=== PATIENT | female | born 1965 | race American Indian/Alaskan Native ===

== ENCOUNTER 2016-12-06 22:37 | Emergency (ER) | payer SELFPAY ==
[2016-12-06 23:14] VITALS: BP 155/103
--- NOTE | 2016-12-07 02:45 | Emergency Department Report ---
ED Lower Extremity HPI - General Chief Complaint: Extremity Problem,Nontraumatic Stated Complaint: R KNEE EDEMA/PAIN Time Seen by Provider: 12/07/16 02:23 Source: patient Mode of arrival: Ambulatory Limitations: No Limitations - History of Present Illness Initial Comments: Patient comes into the ER today with complaints of right knee pain for the past 4 days. Patient denies any known injury. Patient does state that she started working a new job but she mostly does sitting at this new job. Patient states that the knee feels unstable when walking and feels like it wants to give out on her. Patient does state that the pain seems to be mostly on the inside of her knee. Patient denies any chest pain, shortness of breath, ankle pain, hip pain, thigh pain. MD Complaint: knee injury -: days(s) (4) - Related Data Previous Rx's Medication Instructions Recorded Last Taken Type Cyclobenzaprine HCl [Flexeril 5 MG 5 mg PO TID PRN #20 tab 01/04/15 Unknown Rx TAB] HYDROcodone/APAP 5-325 [[place] 1 each PO Q6HR PRN #10 tablet 01/04/15 Unknown Rx 5-325 mg TAB] traMADol [Ultram 50 MG tab] 50 mg PO Q6HR PRN #20 tablet 01/04/15 Unknown Rx Acetaminophen/Codeine [Tylenol #3] 1 tab PO Q6H PRN #14 tab 12/20/15 Unknown Rx Cyclobenzaprine [Flexeril] 10 mg PO TID PRN #20 tablet 12/20/15 Unknown Rx Ibuprofen [Motrin] 800 mg PO Q8HR PRN #30 tablet 12/20/15 Unknown Rx Acetaminophen/Codeine [Tylenol 1 tab PO Q6H PRN #16 tab 12/07/16 Unknown Rx /Codeine # 3 tab] Naproxen [Naprosyn TAB] 500 mg PO BID #20 tablet 12/07/16 Unknown Rx Allergies Allergy/AdvReac Type Severity Reaction Status Date / Time No Known Allergies Allergy Unverified 01/04/15 14:19 ED Review of Systems ROS: Stated complaint: R KNEE EDEMA/PAIN Other details as noted in HPI Constitutional: denies: chills, fever Eyes: denies: eye pain, eye discharge, vision change ENT: denies: ear pain, throat pain Respiratory: denies: cough, shortness of breath, wheezing Cardiovascular: denies: chest pain, palpitations Endocrine: no symptoms reported Gastrointestinal: denies: abdominal pain, nausea, diarrhea Genitourinary: denies: urgency, dysuria, discharge Musculoskeletal: joint swelling, arthralgia. denies: back pain Skin: denies: rash, lesions Neurological: denies: headache, weakness, paresthesias Psychiatric: denies: anxiety, depression Hematological/Lymphatic: denies: easy bleeding, easy bruising ED Past Medical Hx - Past Medical History Previous Medical History?: Yes Hx Hypertension: Yes Additional medical history: "PALPITATIONS". SCIATICA - Surgical History Past Surgical History?: Yes Hx Cholecystectomy: Yes Additional Surgical History: TUBAL LIGATION - Social History Smoking Status: Current Some Day Smoker Substance Use Type: Alcohol, Marijuana - Medications Home Medications: Home Medications Medication Instructions Recorded Confirmed Last Taken Type Cyclobenzaprine HCl [Flexeril 5 MG 5 mg PO TID PRN #20 tab 01/04/15 Unknown Rx TAB] HYDROcodone/APAP 5-325 [[place] 1 each PO Q6HR PRN #10 tablet 01/04/15 Unknown Rx 5-325 mg TAB] traMADol [Ultram 50 MG tab] 50 mg PO Q6HR PRN #20 tablet 01/04/15 Unknown Rx Acetaminophen/Codeine [Tylenol #3] 1 tab PO Q6H PRN #14 tab 12/20/15 Unknown Rx Cyclobenzaprine [Flexeril] 10 mg PO TID PRN #20 tablet 12/20/15 Unknown Rx Ibuprofen [Motrin] 800 mg PO Q8HR PRN #30 tablet 12/20/15 Unknown Rx Acetaminophen/Codeine [Tylenol 1 tab PO Q6H PRN #16 tab 12/07/16 Unknown Rx /Codeine # 3 tab] Naproxen [Naprosyn TAB] 500 mg PO BID #20 tablet 12/07/16 Unknown Rx ED Physical Exam - General Limitations: No Limitations General appearance: alert, in no apparent distress - Head Head exam: Present: atraumatic, normocephalic - Eye Eye exam: Present: normal appearance - ENT ENT exam: Present: mucous membranes moist - Neck Neck exam: Present: normal inspection - Respiratory Respiratory exam: Present: normal lung sounds bilaterally. Absent: respiratory distress, wheezes, rales, rhonchi, accessory muscle use, decreased breath sounds - Cardiovascular Cardiovascular Exam: Present: regular rate (heart rate rechecked and measured at 88 bpm during my examination), normal rhythm, normal heart sounds. Absent: systolic murmur, diastolic murmur, rubs, gallop - GI/Abdominal GI/Abdominal exam: Present: soft, normal bowel sounds - Extremities Exam Extremities exam: Present: normal inspection, tenderness (tenderness noted to the distal end of right MCL as well as anterior horn of meniscus joint line.), normal capillary refill, other (positive pain with valgus stress test of right knee as well as positive Eugenio's stress test of right knee.). Absent: full ROM (Limited range of motion of right knee secondary to pain.), pedal edema, joint swelling, calf tenderness - Back Exam Back exam: Present: normal inspection - Neurological Exam Neurological exam: Present: alert, oriented X3, CN II-XII intact, reflexes normal. Absent: motor sensory deficit - Psychiatric Psychiatric exam: Present: normal affect, normal mood - Skin Skin exam: Present: warm, dry, intact, normal color. Absent: rash ED Course Vital Signs 12/06/16 22:51 Temperature 98.3 F Pulse Rate 105 H Respiratory 20 Rate Blood Pressure 155/103 O2 Sat by Pulse 100 Oximetry ED Lower Extremity MDM - Radiology Data Radiology results: image reviewed interpreted by me: X-ray right knee: No acute bone pathology noted. Slight medial joint space narrowing with mild degenerative changes. No fracture, no dislocation noted. - Medical Decision Making Patient is nontoxic and hemodynamically stable. X-ray imaging reviewed and discussed with patient room. Clinically in history yeager I believe patient to be suffering from possible MCL strain versus meniscus injury. Patient placed in right knee immobilizer here in the ER and I have encouraged patient to wear knee immobilizer when she is up and about doing any activity. I will refer patient to orthopedics for further evaluation and possible MRI to further evaluate her complaints. Patient's heart rate was initially elevated during triage but during my examination her heart rate lowered to 88 bpm. Patient does have history of high blood pressure and states that she did not take her medicine today. He is without any complaints of chest pain, headache, shortness of breath and has no physical exam concerning for any possible DVT, gout, cellulitis. Patient is in agreement with treatment plan patient is stable for discharge. Critical care attestation.: If time is entered above; I have spent that time in minutes in the direct care of this critically ill patient, excluding procedure time. ED Disposition Clinical Impression: Knee MCL sprain, Right knee pain, Elevated blood pressure reading Disposition: TO HOME OR SELFCARE Is pt being admited?: No Does the pt Need Aspirin: No Condition: Good Instructions: Knee Immobilizer (ED), Knee Sprain (ED) Prescriptions: Acetaminophen/Codeine [Tylenol /Codeine # 3 tab] 1 tab PO Q6H PRN #16 tab PRN Reason: Pain Naproxen [Naprosyn TAB] 500 mg PO BID #20 tablet Referrals: PRIMARY CAREMD [Primary Care Provider] - 3-5 Days KARLI TILLMAN MD [Staff Physician] - 3-5 Days Forms: Work/School Release Form(ED) Time of Disposition: 02:48
--- NOTE | 2016-12-07 10:55 | XRay Report ---
RIGHT KNEE 2 VIEWS: 12/06/16 22:37:00 CLINICAL: Pain FINDINGS: No fracture or dislocation. Medial joint space osteoarthritis with mild narrowing of the joint space and small osteophytes. Patellofemoral joint osteoarthritis with small osteophytes. No joint effusion.Normal soft tissues. IMPRESSION: Osteoarthritis and otherwise normal.
== END 2016-12-07 03:53 | disposition home or self-care (01) ==
LOC: ED 22:37
DX: S83.91XA Sprain of unspecified site of right knee, initial encounter (principal); I10 Essential (primary) hypertension; X58.XXXA Exposure to other specified factors, initial encounter; Y93.9 Activity, unspecified; Y92.9 Unspecified place or not applicable; Y99.9 Unspecified external cause status
CPT/HCPCS: 99283

== ENCOUNTER 2017-11-08 22:04 | Emergency (ER) | payer SELFPAY ==
[2017-11-08] MEDS ORDERED: CATAPRES PO ONE (22:28)
[2017-11-08 22:54] LABS: Basophils % (Auto) 0.5 % (0.0-1.8); Eosinophils # (Auto) 0.3 K/mm3 (0.0-0.4); Eosinophils % (Auto) 5.6 % (0.0-4.3); Hematocrit 41.3 % (30.3-42.9); Hemoglobin 13.9 gm/dl (10.1-14.3); Lymphocytes # (Auto) 1.6 K/mm3 (1.2-5.4); Lymphocytes % (Auto) 26.8 % (13.4-35.0); Mean Corpuscular HGB Conc 34 % (30-34); Mean Corpuscular Hemoglobin 34 pg (28-32); Mean Corpuscular Volume 102 fl (79-97); Monocytes # (Auto) 0.5 K/mm3 (0.0-0.8); Monocytes % (Auto) 7.5 % (0.0-7.3); Platelet Count 186 K/mm3 (140-440); Red Blood Count 4.05 M/mm3 (3.65-5.03); Red Cell Distribution Width 14.8 % (13.2-15.2)
[2017-11-08 23:11] LABS: BUN/Creatinine Ratio 17; Blood Urea Nitrogen 17 mg/dL (7-17); Calcium 9.5 mg/dL (8.4-10.2); Hemolysis Index 8
--- NOTE | 2017-11-08 23:16 | XRay Report ---
FINAL REPORT EXAM: XR CHEST ROUTINE 2V HISTORY: Productive Cough COMPARISON: None available. FINDINGS:: Frontal and lateral views of the chest obtained. Cardiac silhouette is within normal limits. No focal consolidation or effusion. No pneumothorax. Visualized bony thorax is grossly intact. IMPRESSION:: No acute findings.
--- NOTE | 2017-11-08 23:19 | Cat Scan Report ---
FINAL REPORT EXAM: CT HEAD/BRAIN WO CON HISTORY: Headache COMPARISON: None available. TECHNIQUE: Axial images obtained skull base through vertex. FINDINGS: No acute intracranial hemorrhage, midline shift or pathologic extra axial fluid collection. Ventricles and cisterns are normal in size and configuration for the patient's age. Da Silva-white differentiation preserved. Calvarium grossly intact. Ocular globes are grossly unremarkable. Mild calcified plaque along the carotid siphons. Mild to moderate mucosal thickening the visualized paranasal sinuses. Mastoid air cells are clear. Partially empty sella, benign variant. Prominence of the nasopharyngeal adenoids. This may be reactive. IMPRESSION: No grossly acute intracranial abnormality.
[2017-11-08] MEDS ORDERED: BENADRYL IV ONE (23:52)
[2017-11-08] MEDS ORDERED: NACL 0.9% 1000 ML 1,000 ML IV ONE (23:52)
[2017-11-08] MEDS ORDERED: TORADOL IV ONE (23:52)
[2017-11-08] MEDS ORDERED: REGLAN IV ONE (23:53)
[2017-11-08] MEDS ORDERED: DECADRON PO ONE (23:53)
--- NOTE | 2017-11-08 23:58 | Emergency Department Report ---
ED Headache HPI - General Chief Complaint: Headache Stated Complaint: HEADACHE,LEFT ARM PAIN,COUGH Time Seen by Provider: 11/08/17 23:34 Source: patient - History of Present Illness Initial Comments: ms bautista is a 52 year-old woman with hx of HTN on atenolol (ran out) who presents with headache for nearly two weeks. Has had DIAMODN over entire head since her granddaughter on October 23. Was exacerbated by the passing of her nephew two nights ago. No weakness, no tingling, no changes in vision. Has been out of meds for more than a month. Also reports nagging cough, no fever, no sputum. Left shoulder pain. Front of her shoulder and radiates down her left arm. No weakness/tingling in arm, just hurts to move her shoulder. No neck pain/ stiffness. Timing/Duration: 1 week Quality: constant Head Injury Location: global Recent Head Trauma: no recent headache/trauma Associated Symptoms: denies symptoms Allergies/Adverse Reactions: Allergies No Known Allergies Allergy (Unverified 01/04/15 14:19) Home Medications: Ambulatory Orders Cyclobenzaprine HCl [Flexeril 5 MG TAB] 5 mg PO TID PRN #20 tab 01/04/15 HYDROcodone/APAP 5-325 [[place] 5-325 mg TAB] 1 each PO Q6HR PRN #10 tablet traMADol [Ultram 50 MG tab] 50 mg PO Q6HR PRN #20 tablet 01/04/15 Acetaminophen/Codeine [Tylenol #3] 1 tab PO Q6H PRN #14 tab 12/20/15 Cyclobenzaprine [Flexeril] 10 mg PO TID PRN #20 tablet 12/20/15 Ibuprofen [Motrin] 800 mg PO Q8HR PRN #30 tablet 12/20/15 Acetaminophen/Codeine [Tylenol /Codeine # 3 tab] 1 tab PO Q6H PRN #16 tab Naproxen [Naprosyn TAB] 500 mg PO BID #20 tablet 12/07/16 ED Review of Systems ROS: Stated complaint: HEADACHE,LEFT ARM PAIN,COUGH Other details as noted in HPI Comment: All other systems reviewed and negative ED Past Medical Hx - Past Medical History Hx Hypertension: Yes Additional medical history: "PALPITATIONS". SCIATICA - Surgical History Hx Cholecystectomy: Yes Additional Surgical History: TUBAL LIGATION - Social History Smoking Status: Current Every Day Smoker Substance Use Type: None - Medications Home Medications: Home Medications Medication Instructions Recorded Confirmed Last Taken Type Cyclobenzaprine HCl [Flexeril 5 MG 5 mg PO TID PRN #20 tab 01/04/15 Unknown Rx TAB] HYDROcodone/APAP 5-325 [[place] 1 each PO Q6HR PRN #10 tablet 01/04/15 Unknown Rx 5-325 mg TAB] traMADol [Ultram 50 MG tab] 50 mg PO Q6HR PRN #20 tablet 01/04/15 Unknown Rx Acetaminophen/Codeine [Tylenol #3] 1 tab PO Q6H PRN #14 tab 12/20/15 Unknown Rx Cyclobenzaprine [Flexeril] 10 mg PO TID PRN #20 tablet 12/20/15 Unknown Rx Ibuprofen [Motrin] 800 mg PO Q8HR PRN #30 tablet 12/20/15 Unknown Rx Acetaminophen/Codeine [Tylenol 1 tab PO Q6H PRN #16 tab 12/07/16 Unknown Rx /Codeine # 3 tab] Naproxen [Naprosyn TAB] 500 mg PO BID #20 tablet 12/07/16 Unknown Rx ED Physical Exam - General Limitations: No Limitations General appearance: alert, in no apparent distress - Head Head exam: Present: atraumatic, normocephalic, normal inspection - Eye Eye exam: Present: normal appearance, PERRL, EOMI. Absent: conjunctival injection - ENT ENT exam: Present: normal exam, mucous membranes moist - Neck Neck exam: Present: normal inspection, full ROM. Absent: tenderness, meningismus - Respiratory Respiratory exam: Present: normal lung sounds bilaterally. Absent: respiratory distress, wheezes, rales, rhonchi - Cardiovascular Cardiovascular Exam: Present: regular rate, normal rhythm. Absent: systolic murmur, diastolic murmur, rubs, gallop - GI/Abdominal GI/Abdominal exam: Present: soft. Absent: distended, tenderness - Extremities Exam Extremities exam: Present: normal inspection, full ROM, tenderness (Left anterior proximal humeral ttp, full acitve and passive ROM shoulder), normal capillary refill - Back Exam Back exam: Present: normal inspection - Neurological Exam Neurological exam: Present: alert, oriented X3, other (LUE NV itnact). Absent: motor sensory deficit - Psychiatric Psychiatric exam: Present: normal affect, normal mood - Skin Skin exam: Present: warm, dry, intact, normal color. Absent: rash ED Course Vital Signs 11/08/17 11/08/17 11/08/17 22:02 22:35 23:46 Temperature 98.4 F Pulse Rate 81 86 77 Respiratory 18 17 Rate Blood Pressure 210/127 210/127 Blood Pressure 159/87 [Right] O2 Sat by Pulse 98 97 Oximetry 11/09/17 11/09/17 00:00 00:53 Temperature Pulse Rate 62 Respiratory 16 Rate Blood Pressure 161/90 Blood Pressure [Right] O2 Sat by Pulse 97 Oximetry ED Medical Decision Making - Lab Data Result diagrams: 11/08/17 22:35 11/08/17 22:35 Lab Results 11/08/17 11/08/17 Range/Units 22:35 22:35 WBC 6.1 (4.5-11.0) K/mm3 RBC 4.05 (3.65-5.03) M/mm3 Hgb 13.9 (10.1-14.3) gm/dl Hct 41.3 (30.3-42.9) % MCV 102 H (79-97) fl MCH 34 H (28-32) pg MCHC 34 (30-34) % RDW 14.8 (13.2-15.2) % Plt Count 186 (140-440) K/mm3 Lymph % (Auto) 26.8 (13.4-35.0) % [place] % (Auto) 7.5 H (0.0-7.3) % Eos % (Auto) 5.6 H (0.0-4.3) % Baso % (Auto) 0.5 (0.0-1.8) % Lymph # 1.6 (1.2-5.4) K/mm3 [place] # 0.5 (0.0-0.8) K/mm3 Eos # 0.3 (0.0-0.4) K/mm3 Baso # 0.0 (0.0-0.1) K/mm3 Seg Neutrophils % 59.6 (40.0-70.0) % Seg Neutrophils # 3.7 (1.8-7.7) K/mm3 Sodium 143 (137-145) mmol/L Potassium 3.4 L (3.6-5.0) mmol/L Chloride 98.9 (98-107) mmol/L Carbon Dioxide 34 H (22-30) mmol/L Anion Gap 14 mmol/L BUN 17 (7-17) mg/dL Creatinine 1.0 (0.7-1.2) mg/dL Estimated GFR > 60 ml/min BUN/Creatinine Ratio 17 % Glucose 95 (65-100) mg/dL Calcium 9.5 (8.4-10.2) mg/dL Troponin T < 0.010 (0.00-0.029) ng/mL - EKG Data -: EKG Interpreted by Me - EKG Data 11/08/17 23:59 2310; HR 66, sinus, normal axis, intervals wnl, no ST changes concerning for acute ischemia - Radiology Data EXAM: CT HEAD/BRAIN WO CON HISTORY: Headache COMPARISON: None available. TECHNIQUE: Axial images obtained skull base through vertex. FINDINGS: No acute intracranial hemorrhage, midline shift or pathologic extra axial fluid collection. Ventricles and cisterns are normal in size and configuration for the patient's age. Da Silva-white differentiation preserved. Calvarium grossly intact. Ocular globes are grossly unremarkable. Mild calcified plaque along the carotid siphons. Mild to moderate mucosal thickening the visualized paranasal sinuses. Mastoid air cells are clear. Partially empty sella, benign variant. Prominence of the nasopharyngeal adenoids. This may be reactive. IMPRESSION: No grossly acute intracranial abnormality. EXAM: XR CHEST ROUTINE 2V HISTORY: Productive Cough COMPARISON: None available. FINDINGS:: Frontal and lateral views of the chest obtained. Cardiac silhouette is within normal limits. No focal consolidation or effusion. No pneumothorax. Visualized bony thorax is grossly intact. IMPRESSION:: No acute findings. - Medical Decision Making Ms Bautista is a 52 year-old woman with hx of HTN who presents from home with DIAMOND for weeks. Also with cough, left shoulder pain. labs and imaging ordered in triage. Weeks of what sounds like tension type headache since stressful life event. no neuro symptoms. left shoulder pain, better with rest, worse with movement. Again no weakness, no tingling in L arm. Dry cough without fever. Exam reveals her to be neuro intact, lungs clear, muscular ttp at biceps tendon origin. Suspect this is tension type DIAMOND vs ICH vs mass. Suspect arm pain is msk and cough is allergies. CXR clear. CT head wnl. EKG nsr without evidence of ischemia. Was given clonidine for HTN. has been out of her home meds for some time. Given half dose of atenolol. Will refill her atenolol. Has pcp follow-up this week. Given DIAMOND cocktail. Full resolution of DIAMOND. Improvement in arm pain. Reassured as to the finding that she does not have pneumonia. Given care instructions and return precautions. Safe for dc to home. Critical care attestation.: If time is entered above; I have spent that time in minutes in the direct care of this critically ill patient, excluding procedure time. ED Disposition Clinical Impression: Cough Headache Qualifiers: Headache type: tension-type Headache chronicity pattern: acute headache Intractability: not intractable Qualified Code(s): G44.209 - Tension-type headache, unspecified, not intractable Shoulder pain, left Qualifiers: Chronicity: unspecified Qualified Code(s): M25.512 - Pain in left shoulder Disposition: DC-01 TO HOME OR SELFCARE Is pt being admited?: No Condition: Stable Instructions: Tension Headache (ED), Acute Headache (ED), Rotator Cuff Injury ( ED) Referrals: PRIMARY CARE, [Primary Care Provider] - 3-5 Days
[2017-11-09] MEDS ORDERED: TENORMIN PO ONE ×2 (00:29→00:50)
[2017-11-09 00:56] VITALS: BP 161/90
== END 2017-11-09 02:00 | disposition home or self-care (01) ==
LOC: ED 22:04
DX: G44.209 Tension-type headache, unspecified, not intractable (principal); R05 Cough; M25.512 Pain in left shoulder; I10 Essential (primary) hypertension; F17.200 Nicotine dependence, unspecified, uncomplicated; Z98.51 Tubal ligation status
CPT/HCPCS: 36415; 70450; 71046; 80048; 84484; 85025; 93005; 93010; 96361; 96374; 96375; 99284; J1885; J2765; J7030; J8540; J1200

== ENCOUNTER 2018-01-29 14:32 | Emergency (ER) | payer OTHER ==
[2018-01-29] MEDS ORDERED: DELTASONE PO ONE (17:15)
--- NOTE | 2018-01-29 17:17 | Emergency Department Report ---
Chief Complaint: Neuro Symptoms/Deficit Stated Complaint: (R) HIP AND BACK PAIN Time Seen by Provider: 01/29/18 17:06 - HPI History of Present Illness: 52-year-old female presents to the emergency department with 2 main issues. Her most concerning complaint, to her, is right buttock pain that occurs mostly at night after she has gotten ready for bed and has been lying in bed for about 45 minutes. At that time he gets to be a severe pain that keeps her from getting to sleep. Once she is up and ambulatory she appears to improve. She says that the pain is generally there but is very bearable until she goes to sleep. This is been going on for the past 2-3 months. The second complaint is some right arm paresthesias that also have been going on for the past few months. She denies any other significant past medical history. She has a primary care physician but has not seen them regarding her symptoms. - ROS Review of Systems: Positive for right arm numbness and tingling, right buttock pain Negative for headache, visual change, slurred speech, chest pain or shortness of breath - Exam Vital Signs: Vital Signs 01/29/18 16:09 Temperature 99.0 F Pulse Rate 73 Respiratory 18 Rate Blood Pressure 150/99 O2 Sat by Pulse 98 Oximetry Physical Exam: Heart and lungs are normal auscultation. No focal, motor or sensory deficits. Full range of motion of all extremities. Capillary refill less than 2 seconds and +2 over 4 radial pulse to the affected right upper extremity. MSE screening note: Focused history and physical exam performed. Due to findings the following was ordered: Patient will have a CBC, BMP and magnesium level. She has been given a dose of prednisone. ED Disposition for MSE Condition: Stable Referrals: PRIMARY CARE, [Primary Care Provider] - 3-5 Days
[2018-01-29 17:33] LABS: Basophils # (Auto) 0.1 K/mm3 (0.0-0.1); Basophils % (Auto) 0.8 % (0.0-1.8); Eosinophils # (Auto) 0.2 K/mm3 (0.0-0.4); Hematocrit 42.8 % (30.3-42.9); Hemoglobin 14.7 gm/dl (10.1-14.3); Lymphocytes % (Auto) 26.4 % (13.4-35.0); Mean Corpuscular HGB Conc 34 % (30-34); Mean Corpuscular Hemoglobin 35 pg (28-32); Mean Corpuscular Volume 101 fl (79-97); Monocytes # (Auto) 0.6 K/mm3 (0.0-0.8); Monocytes % (Auto) 8.4 % (0.0-7.3); Platelet Count 204 K/mm3 (140-440); Red Blood Count 4.24 M/mm3 (3.65-5.03)
[2018-01-29 18:01] LABS: BUN/Creatinine Ratio 19; Blood Urea Nitrogen 19 mg/dL (7-17); Hemolysis Index 22
--- NOTE | 2018-01-29 20:05 | Emergency Department Report ---
ED General Adult HPI - General Chief complaint: Neuro Symptoms/Deficit Stated complaint: (R) HIP AND BACK PAIN Time Seen by Provider: 01/29/18 17:06 Source: patient Mode of arrival: Ambulatory Limitations: No Limitations - History of Present Illness Initial comments: 52-year-old female presents to the emergency department with 2 main issues. Her most concerning complaint, to her, is right buttock pain that occurs mostly at night after she has gotten ready for bed and has been lying in bed for about 45 minutes. At that time he gets to be a severe pain that keeps her from getting to sleep. Once she is up and ambulatory she appears to improve. She says that the pain is generally there but is very bearable until she goes to sleep. This is been going on for the past 2-3 months. The second complaint is some right arm paresthesias that also have been going on for the past few months. She denies any other significant past medical history. She has a primary care physician but has not seen them regarding her symptoms. Onset/Timin -: month(s) Location: back, upper extremity, lower extremity Severity scale (0 -10): 4 Quality: aching Consistency: intermittent Improves with: rest Worsens with: movement Associated Symptoms: denies: confusion, chest pain, cough, diaphoresis, fever/ chills, headaches, loss of appetite, malaise, nausea/vomiting, rash, seizure, shortness of breath, syncope, weakness - Related Data Previous Rx's Medication Instructions Recorded Last Taken Type Cyclobenzaprine HCl [Flexeril 5 MG 5 mg PO TID PRN #20 tab 01/04/15 Unknown Rx TAB] HYDROcodone/APAP 5-325 [[place] 1 each PO Q6HR PRN #10 tablet 01/04/15 Unknown Rx 5-325 mg TAB] traMADol [Ultram 50 MG tab] 50 mg PO Q6HR PRN #20 tablet 01/04/15 Unknown Rx Acetaminophen/Codeine [Tylenol #3] 1 tab PO Q6H PRN #14 tab 12/20/15 Unknown Rx Cyclobenzaprine [Flexeril] 10 mg PO TID PRN #20 tablet 12/20/15 Unknown Rx Ibuprofen [Motrin] 800 mg PO Q8HR PRN #30 tablet 12/20/15 Unknown Rx Acetaminophen/Codeine [Tylenol 1 tab PO Q6H PRN #16 tab 12/07/16 Unknown Rx /Codeine # 3 tab] Naproxen [Naprosyn TAB] 500 mg PO BID #20 tablet 12/07/16 Unknown Rx Atenolol 50 mg PO QDAY 14 Days #14 tablet 11/09/17 Unknown Rx Cyclobenzaprine [Flexeril] 10 mg PO BID PRN #20 tablet 01/29/18 Unknown Rx Fluticasone [Flonase] 1 spray NS QDAY #1 bottle 01/29/18 Unknown Rx Naproxen [Naprosyn] 500 mg PO BID PRN #30 tablet 01/29/18 Unknown Rx predniSONE [Deltasone] 40 mg PO QDAY #10 tab 01/29/18 Unknown Rx Allergies Allergy/AdvReac Type Severity Reaction Status Date / Time No Known Allergies Allergy Unverified 01/04/15 14:19 ED Review of Systems ROS: Stated complaint: (R) HIP AND BACK PAIN Other details as noted in HPI Constitutional: denies: chills, fever Eyes: denies: eye pain, eye discharge, vision change ENT: denies: ear pain, throat pain Respiratory: no symptoms reported Cardiovascular: denies: chest pain, palpitations Endocrine: no symptoms reported Gastrointestinal: denies: abdominal pain, nausea, diarrhea Genitourinary: denies: urgency, dysuria, discharge Musculoskeletal: back pain, myalgia Skin: denies: rash, lesions Neurological: other (tingling right arm ). denies: headache, weakness, numbness , paresthesias, confusion, abnormal gait, vertigo Psychiatric: anxiety. denies: depression Hematological/Lymphatic: denies: easy bleeding, easy bruising ED Past Medical Hx - Past Medical History Hx Hypertension: Yes Additional medical history: "PALPITATIONS". SCIATICA - Surgical History Hx Cholecystectomy: Yes Additional Surgical History: TUBAL LIGATION - Social History Smoking Status: Current Every Day Smoker Substance Use Type: Alcohol - Medications Home Medications: Home Medications Medication Instructions Recorded Confirmed Last Taken Type Cyclobenzaprine HCl [Flexeril 5 MG 5 mg PO TID PRN #20 tab 01/04/15 Unknown Rx TAB] HYDROcodone/APAP 5-325 [[place] 1 each PO Q6HR PRN #10 tablet 01/04/15 Unknown Rx 5-325 mg TAB] traMADol [Ultram 50 MG tab] 50 mg PO Q6HR PRN #20 tablet 01/04/15 Unknown Rx Acetaminophen/Codeine [Tylenol #3] 1 tab PO Q6H PRN #14 tab 12/20/15 Unknown Rx Cyclobenzaprine [Flexeril] 10 mg PO TID PRN #20 tablet 12/20/15 Unknown Rx Ibuprofen [Motrin] 800 mg PO Q8HR PRN #30 tablet 12/20/15 Unknown Rx Acetaminophen/Codeine [Tylenol 1 tab PO Q6H PRN #16 tab 12/07/16 Unknown Rx /Codeine # 3 tab] Naproxen [Naprosyn TAB] 500 mg PO BID #20 tablet 12/07/16 Unknown Rx Atenolol 50 mg PO QDAY 14 Days #14 tablet 11/09/17 Unknown Rx Cyclobenzaprine [Flexeril] 10 mg PO BID PRN #20 tablet 01/29/18 Unknown Rx Fluticasone [Flonase] 1 spray NS QDAY #1 bottle 01/29/18 Unknown Rx Naproxen [Naprosyn] 500 mg PO BID PRN #30 tablet 01/29/18 Unknown Rx predniSONE [Deltasone] 40 mg PO QDAY #10 tab 01/29/18 Unknown Rx ED Physical Exam - General Limitations: No Limitations General appearance: alert, in no apparent distress - Head Head exam: Present: atraumatic, normocephalic - Eye Eye exam: Present: normal appearance, PERRL, EOMI Pupils: Present: normal accommodation - ENT ENT exam: Present: mucous membranes moist - Expanded ENT Exam Expanded Ear exam: Present: normal external inspection Mouth exam: Present: other (clear post nasal drip no stridor no wheezing ) Throat exam: Positive: tonsillar erythema. Negative: tonsillar exudate, R peritonsillar mass, L peritonsillar mass - Neck Neck exam: Present: normal inspection, full ROM. Absent: tenderness, meningismus, lymphadenopathy, thyromegaly - Expanded Neck Exam Expanded Neck exam: Absent: tenderness, midline deformity, anterior neck swelling, thyroid mass, carotid bruit, tracheal deviation - Respiratory Respiratory exam: Present: normal lung sounds bilaterally. Absent: respiratory distress, wheezes, stridor, chest wall tenderness - Cardiovascular Cardiovascular Exam: Present: regular rate, normal rhythm, normal heart sounds. Absent: systolic murmur, diastolic murmur, rubs, gallop - GI/Abdominal GI/Abdominal exam: Present: soft, normal bowel sounds. Absent: tenderness, bruit, hernia - Rectal Rectal exam: Present: deferred - Extremities Exam Extremities exam: Present: normal inspection, full ROM, normal capillary refill. Absent: tenderness, pedal edema, joint swelling, calf tenderness - Expanded Upper Extremity Exam Right Shoulder Exam: Present: full ROM, other (rom intact no weakness automatic stacker equal no pain with pronation or supination shoulder drop intact ). Absent: tenderness, swelling, abrasion, laceration, ecchymosis, deformity, crepidus, dislocation, erythema, tenderness over AC joint Upper Arm exam: Present: normal inspection, full ROM. Absent: tenderness Elbow exam: Present: normal inspection, full ROM. Absent: tenderness Forearm Wrist exam: Present: normal inspection, full ROM. Absent: tenderness Hand Wrist exam: Present: normal inspection, full ROM. Absent: tenderness Neuro motor exam: Present: wrist extension intact, thumb opposition intact, thumb IP flexion intact, thumb adduction intact, fingers 2-5 abduction intact Neurosensory exam: Present: 2-point discrimination, radial nerve intact, ulnar nerve intact, median nerve intact Vascular: Present: vascular compromise, normal capillary refill, radial pulse, brachial pulse, ulnar pulse. Absent: Pallo, pulse deficit radial art, pulse deficit ulnar art, pulse deficit brachial art - Expanded Lower Extremity Exam Right Hip exam: Present: full ROM. Absent: tenderness, swelling, abrasion, deformity , crepidus, dislocation, erythema, external rotation, internal rotation, shortening, pelvic stability Upper Leg exam: Present: normal inspection, full ROM Knee exam: Present: normal inspection, full ROM Lower Leg exam: Present: normal inspection, full ROM Ankle exam: Present: normal inspection, full ROM Foot/Toe exam: Present: normal inspection, full ROM Neuro vascular tendon exam: Present: no vascular compromise. Absent: pulse deficit, abnormal cap refill, motor deficit, sensory deficit, tendon deficit, extremity cold to touch, pallor, abnormal 2-point discrimination, decreased fine /light touch, foot drop, peroneal nerve deficit Gait: Positive: observed and normal - Back Exam Back exam: Present: normal inspection, full ROM, tenderness (no posterior vertebral point tenderness no swelling no numbness no rom intact unrestricted neg straight leg ), muscle spasm, paraspinal tenderness. Absent: CVA tenderness (R), CVA tenderness (L), vertebral tenderness, rash noted - Expanded Back Exam Expanded Back exam: Absent: saddle anesthesia Back exam: Negative Straight Leg Raising: Left, Right - Neurological Exam Neurological exam: Present: alert, oriented X3, CN II-XII intact, normal gait, reflexes normal. Absent: motor sensory deficit - Psychiatric Psychiatric exam: Present: normal affect, normal mood - Skin Skin exam: Present: warm, dry, intact, normal color. Absent: rash ED Course Vital Signs 01/29/18 16:09 Temperature 99.0 F Pulse Rate 73 Respiratory 18 Rate Blood Pressure 150/99 O2 Sat by Pulse 98 Oximetry ED Medical Decision Making - Lab Data Result diagrams: 01/29/18 17:20 01/29/18 17:20 - EKG Data EKG shows normal: sinus rhythm (NSTEMI screen via attending MD ) Rate: normal - EKG Data Interpretation: normal EKG - Medical Decision Making Patient states frequent and multiple complaints Including URI intermittent right arm numbness tingling , right hip pain SYMPTOMS intermittently for the last 3 months of her previous visits for right hip and low back pain and now is 4/10 pulmonary exam patient states she did sleep on her right arm last night on range of motion intact automatic stacker equal 5/ 5 pronation and supination intact shoulder dry and intact this is not Friday night palsy there is no paralysis subjective tingling or paresthesia no deformity range of motion intact there is subjective lumbar paraspinous pain to deep palpation negative straight leg patient remains ambulatory to baseline per patient upon advice of discharge patient states headache for 10 exam benign with treat for URI and musculoskeletal pain patient will follow with sinusitis in 2 days or return to ED should symptoms worsen patient verbalizes understanding and agreeable with sending be DC'd home in stable condition at this time Critical care attestation.: If time is entered above; I have spent that time in minutes in the direct care of this critically ill patient, excluding procedure time. ED Disposition Clinical Impression: Musculoskeletal pain of right upper extremity URI (upper respiratory infection) Qualifiers: URI type: unspecified viral URI Qualified Code(s): J06.9 - Acute upper respiratory infection, unspecified Hip pain Qualifiers: Laterality: right Qualified Code(s): M25.551 - Pain in right hip Disposition: DC- TO HOME OR SELFCARE Is pt being admited?: No Does the pt Need Aspirin: No Condition: Good Instructions: Upper Respiratory Infection (ED), Musculoskeletal Pain (ED) Prescriptions: Cyclobenzaprine [Flexeril] 10 mg PO BID PRN #20 tablet PRN Reason: Spasms Fluticasone [Flonase] 1 spray NS QDAY #1 bottle Naproxen [Naprosyn] 500 mg PO BID PRN #30 tablet PRN Reason: pain predniSONE [Deltasone] 40 mg PO QDAY #10 tab Referrals: PRIMARY CARE,MD [Primary Care Provider] - 3-5 Days [facility] [Outside] - 3-5 Days Forms: Work/School Release Form(ED) Time of Disposition: 20:17
[2018-01-29 20:28] VITALS: BP 144/78
== END 2018-01-29 20:26 | disposition home or self-care (01) ==
LOC: ED 14:32
DX: M25.551 Pain in right hip (principal); M79.601 Pain in right arm; R20.2 Paresthesia of skin; J06.9 Acute upper respiratory infection, unspecified; I10 Essential (primary) hypertension; F17.200 Nicotine dependence, unspecified, uncomplicated; Z90.49 Acquired absence of other specified parts of digestive tract; Z98.51 Tubal ligation status
CPT/HCPCS: 36415; 80048; 83735; 85025; 93005; 93010; 99283; J7512

== ENCOUNTER 2018-10-26 18:39 | Emergency (ER) | payer OTHER ==
[2018-10-26 19:12] VITALS: BP 158/101
--- NOTE | 2018-10-26 19:12 | Emergency Department Report ---
Blank Doc - Documentation Documentation: This is a 53-year-old female that presents with headache. Stated has history of headache and symptoms are similar. Stated had diarrhea yesterday but resolved today. Denies any blurry vision or visual changes. Denies any head trauma. exam: neuro exam within normal limits. This initial assessment/diagnostic orders/clinical plan/treatment(s) is/are subject to change based on patient's health status, clinical progression and re- assessment by fellow clinical providers in the ED. Further treatment and workup at subsequent clinical providers discretion. Patient/guardians urged not to elope from the ED as their condition may be serious if not clinically assessed and managed. Initial orders include: 1- Patient sent to [facility] for further evaluation and treatment 2- labs
[2018-10-26 19:41] LABS: Basophils % (Auto) 0.4 % (0.0-1.8); Eosinophils # (Auto) 0.2 K/mm3 (0.0-0.4); Eosinophils % (Auto) 4.4 % (0.0-4.3); Hematocrit 41.7 % (30.3-42.9); Hemoglobin 14.4 gm/dl (10.1-14.3); Lymphocytes # (Auto) 1.3 K/mm3 (1.2-5.4); Lymphocytes % (Auto) 33.5 % (13.4-35.0); Mean Corpuscular HGB Conc 35 % (30-34); Mean Corpuscular Volume 102 fl (79-97); Monocytes # (Auto) 0.4 K/mm3 (0.0-0.8); Monocytes % (Auto) 9.5 % (0.0-7.3); Platelet Count 204 K/mm3 (140-440); Red Blood Count 4.08 M/mm3 (3.65-5.03)
[2018-10-26 19:55] LABS: Alanine Aminotransferase 12 units/L (7-56); Albumin 4.3 g/dL (3.9-5); BUN/Creatinine Ratio 16; Blood Urea Nitrogen 14 mg/dL (7-17); Calcium 9.8 mg/dL (8.4-10.2); Hemolysis Index 34
[2018-10-26] MEDS ORDERED: TORADOL IM ONE (23:39)
[2018-10-26] MEDS ORDERED: ZOFRAN ODT PO ONE (23:39)
--- NOTE | 2018-10-26 23:39 | Emergency Department Report ---
ED Headache HPI - General Chief Complaint: Headache Stated Complaint: HEAD AND NECK PAIN Time Seen by Provider: 10/26/18 19:10 Source: patient, RN notes reviewed Exam Limitations: no limitations - History of Present Illness Initial Comments: History of a 53-year-old -[place] female that presents to the emergency room with a headache and posterior neck pain. Patient reports sensitivity to light the past 2 days with increased headache. She is currently taking Tylenol with Codeine with no improvement of symptoms. Patient states she had to sit in home for the past 2 days without light improvement of symptoms. Reports never having a headache like this before. States symptoms originally started with diarrhea which has now resolved. She denies nausea or vomiting, visual changes, light headedness. Timing/Duration: 24 hours Quality: severe, constant, throbbing Head Injury Location: global Recent Head Trauma: no recent headache/trauma Modifying Factors: improves with: exposure to light Associated Symptoms: facial pain, nausea/vomiting. denies: fatigue, fever/chills, flushing, nasal congestion, nasal drainage, numbness in legs/feet, seizures, sinus infection, stiff neck, vision changes, weakness Allergies/Adverse Reactions: Allergies No Known Allergies Allergy (Verified 10/26/18 19:12) Home Medications: Ambulatory Orders Cyclobenzaprine HCl [Flexeril 5 MG TAB] 5 mg PO TID PRN #20 tab 01/04/15 HYDROcodone/APAP 5-325 [[place] 5-325 mg TAB] 1 each PO Q6HR PRN #10 tablet 01/04/15 traMADol [Ultram 50 MG tab] 50 mg PO Q6HR PRN #20 tablet 01/04/15 Acetaminophen/Codeine [Tylenol #3] 1 tab PO Q6H PRN #14 tab 12/20/15 Cyclobenzaprine [Flexeril] 10 mg PO TID PRN #20 tablet 12/20/15 Ibuprofen [Motrin] 800 mg PO Q8HR PRN #30 tablet 12/20/15 Acetaminophen/Codeine [Tylenol /Codeine # 3 tab] 1 tab PO Q6H PRN #16 tab 12/07/16 Naproxen [Naprosyn TAB] 500 mg PO BID #20 tablet 12/07/16 Atenolol 50 mg PO QDAY 14 Days #14 tablet 11/09/17 Cyclobenzaprine [Flexeril] 10 mg PO BID PRN #20 tablet 01/29/18 Fluticasone [Flonase] 1 spray NS QDAY #1 bottle 01/29/18 Naproxen [Naprosyn] 500 mg PO BID PRN #30 tablet 01/29/18 predniSONE [Deltasone] 40 mg PO QDAY #10 tab 01/29/18 Ibuprofen [Motrin] 600 mg PO Q8H PRN #14 tablet 05/15/18 Butalb/Acetaminophen/Caffeine [Fioricet 50-300-40 mg CAP] 1 cap PO Q6HR PRN #15 cap 10/27/18 Fluticasone [Flonase] 1 spray NS QDAY #1 bottle 10/27/18 Ondansetron [Zofran Odt] 4 mg PO Q8HR PRN #20 tab.rapdis 10/27/18 ED Review of Systems ROS: Stated complaint: HEAD AND NECK PAIN Other details as noted in HPI Constitutional: denies: chills, fever ENT: denies: ear pain, throat pain Respiratory: denies: cough, shortness of breath, wheezing Cardiovascular: denies: chest pain, palpitations Gastrointestinal: diarrhea. denies: abdominal pain, nausea Neurological: headache. denies: weakness, paresthesias Psychiatric: denies: anxiety, depression ED Past Medical Hx - Past Medical History Previous Medical History?: Yes Hx Hypertension: Yes Additional medical history: "PALPITATIONS". SCIATICA - Surgical History Past Surgical History?: Yes Hx Cholecystectomy: Yes Additional Surgical History: TUBAL LIGATION - Social History Smoking Status: Current Every Day Smoker Substance Use Type: Alcohol - Medications Home Medications: Home Medications Medication Instructions Recorded Confirmed Last Taken Type Cyclobenzaprine HCl [Flexeril 5 MG 5 mg PO TID PRN #20 tab 01/04/15 Unknown Rx TAB] HYDROcodone/APAP 5-325 [[place] 1 each PO Q6HR PRN #10 tablet 01/04/15 Unknown Rx 5-325 mg TAB] traMADol [Ultram 50 MG tab] 50 mg PO Q6HR PRN #20 tablet 01/04/15 Unknown Rx Acetaminophen/Codeine [Tylenol #3] 1 tab PO Q6H PRN #14 tab 12/20/15 Unknown Rx Cyclobenzaprine [Flexeril] 10 mg PO TID PRN #20 tablet 12/20/15 Unknown Rx Ibuprofen [Motrin] 800 mg PO Q8HR PRN #30 tablet 12/20/15 Unknown Rx Acetaminophen/Codeine [Tylenol 1 tab PO Q6H PRN #16 tab 12/07/16 Unknown Rx /Codeine # 3 tab] Naproxen [Naprosyn TAB] 500 mg PO BID #20 tablet 12/07/16 Unknown Rx Atenolol 50 mg PO QDAY 14 Days #14 tablet 11/09/17 Unknown Rx Cyclobenzaprine [Flexeril] 10 mg PO BID PRN #20 tablet 01/29/18 Unknown Rx Fluticasone [Flonase] 1 spray NS QDAY #1 bottle 01/29/18 Unknown Rx Naproxen [Naprosyn] 500 mg PO BID PRN #30 tablet 01/29/18 Unknown Rx predniSONE [Deltasone] 40 mg PO QDAY #10 tab 01/29/18 Unknown Rx Ibuprofen [Motrin] 600 mg PO Q8H PRN #14 tablet 05/15/18 Unknown Rx Butalb/Acetaminophen/Caffeine 1 cap PO Q6HR PRN #15 cap 10/27/18 Unknown Rx [Fioricet 50-300-40 mg CAP] Fluticasone [Flonase] 1 spray NS QDAY #1 bottle 10/27/18 Unknown Rx Ondansetron [Zofran Odt] 4 mg PO Q8HR PRN #20 tab.rapdis 10/27/18 Unknown Rx ED Physical Exam - General Limitations: No Limitations General appearance: alert, in no apparent distress, obese - ENT ENT exam: Present: normal orophraynx, mucous membranes moist, TM's normal bilaterally, normal external ear exam, other (maxillary sinuses tender to p ercussion) - Neck Neck exam: Present: normal inspection - Respiratory Respiratory exam: Present: normal lung sounds bilaterally. Absent: respiratory distress - Cardiovascular Cardiovascular Exam: Present: regular rate, normal rhythm. Absent: systolic murmur, diastolic murmur, rubs, gallop - GI/Abdominal GI/Abdominal exam: Present: soft, normal bowel sounds - Neurological Exam Neurological exam: Present: alert, oriented X3, normal gait - Psychiatric Psychiatric exam: Present: normal affect, normal mood - Skin Skin exam: Present: warm, dry, intact, normal color. Absent: rash ED Course Vital Signs 10/26/18 19:11 Temperature 98.1 F Pulse Rate 84 Respiratory 16 Rate Blood Pressure 158/101 O2 Sat by Pulse 97 Oximetry ED Medical Decision Making - Lab Data Result diagrams: 10/26/18 19:18 10/26/18 19:18 Lab Results 10/26/18 10/26/18 Range/Units 19:18 19:18 WBC 3.9 L (4.5-11.0) K/mm3 RBC 4.08 (3.65-5.03) M/mm3 Hgb 14.4 H (10.1-14.3) gm/dl Hct 41.7 (30.3-42.9) % MCV 102 H (79-97) fl MCH 35 H (28-32) pg MCHC 35 H (30-34) % RDW 15.0 (13.2-15.2) % Plt Count 204 (140-440) K/mm3 Lymph % (Auto) 33.5 (13.4-35.0) % [place] % (Auto) 9.5 H (0.0-7.3) % Eos % (Auto) 4.4 H (0.0-4.3) % Baso % (Auto) 0.4 (0.0-1.8) % Lymph # 1.3 (1.2-5.4) K/mm3 [place] # 0.4 (0.0-0.8) K/mm3 Eos # 0.2 (0.0-0.4) K/mm3 Baso # 0.0 (0.0-0.1) K/mm3 Seg Neutrophils % 52.2 (40.0-70.0) % Seg Neutrophils # 2.0 (1.8-7.7) K/mm3 Sodium 143 (137-145) mmol/L Potassium 3.7 (3.6-5.0) mmol/L Chloride 102.2 (98-107) mmol/L Carbon Dioxide 29 (22-30) mmol/L Anion Gap 16 mmol/L BUN 14 (7-17) mg/dL Creatinine 0.9 (0.7-1.2) mg/dL Estimated GFR > 60 ml/min BUN/Creatinine Ratio 16 % Glucose 96 (65-100) mg/dL Calcium 9.8 (8.4-10.2) mg/dL Total Bilirubin 0.40 (0.1-1.2) mg/dL AST 16 (5-40) units/L ALT 12 (7-56) units/L Alkaline Phosphatase 99 (35-129) units/L Total Protein 6.9 (6.3-8.2) g/dL Albumin 4.3 (3.9-5) g/dL Albumin/Globulin Ratio 1.7 % - Medical Decision Making Patient is stable and was examined by me. Patient refused CT of hair because she has multiple metal hairpin's in her hair. Signs of distress noted. Given toradol and Zofran once in ER. CBC and CMP was obtained. There is a viral infection. Patient was tender to percussion of maxillary sinuses. On reevaluation patient reports feeling better after receiving Toradol and Zofran. She will be treated for migraines with Fioricet, zofran, and Flonase for congestion. No further questions noted by the patient. Discharged home in stable condition. Follow up with PCP in 24-72 hours. Critical care attestation.: If time is entered above; I have spent that time in minutes in the direct care of this critically ill patient, excluding procedure time. ED Disposition Clinical Impression: Viral syndrome Migraine Qualifiers: Migraine type: without aura Status migrainosus presence: with status migrainosus Intractability: not intractable Qualified Code(s): G43.001 - Migraine without aura, not intractable, with status migrainosus Disposition: DC-01 TO HOME OR SELFCARE Is pt being admited?: No Does the pt Need Aspirin: No Condition: Stable Instructions: Viral Syndrome (ED), Migraine Headache (ED) Additional Instructions: Symptoms are most likely coming from for infection. These infections typically do not give antibiotics. Take ibuprofen every 6 hours alternated with Tylenol every 4 hours pain. You may not feel like eating which is to be expected. Try eating a bland diet as tolerated. Wash hands frequently. Usually take pain medication at start of headache. F/U with Primary Care Provider. Return to ER if fever, SOB, or difficulty breathing after 48 hours of supportive care. Prescriptions: Butalb/Acetaminophen/Caffeine [Fioricet 50-300-40 mg CAP] 1 cap PO Q6HR PRN #15 cap PRN Reason: Headache Fluticasone [Flonase] 1 spray NS QDAY #1 bottle Ondansetron [Zofran Odt] 4 mg PO Q8HR PRN #20 tab.rapdis PRN Reason: Nausea And Vomiting Referrals: NICO WONG MD [Primary Care Provider] - 3-5 Days [facility] [Provider Group] - 3-5 Days [facility] [Outside] - 3-5 Days [facility] [Outside] - 3-5 Days Forms: Work/School Release Form(ED) Time of Disposition: 02:11
== END 2018-10-27 02:19 | disposition home or self-care (01) ==
LOC: ED 18:39
DX: G43.001 Migraine without aura, not intractable, with status migrainosus (principal); B34.9 Viral infection, unspecified; I10 Essential (primary) hypertension; F17.200 Nicotine dependence, unspecified, uncomplicated; Z98.51 Tubal ligation status; Z90.49 Acquired absence of other specified parts of digestive tract; Z79.899 Other long term (current) drug therapy
CPT/HCPCS: 36415; 80053; 85025; 96372; 99282; J1885; Q0162

== ENCOUNTER 2019-02-24 19:37 | Emergency (ER) | payer SELFPAY ==
[2019-02-24 19:48] VITALS: BP 153/101
--- NOTE | 2019-02-24 20:24 | Event Note ---
ED Screening Note Date of service: 02/24/19 Time: 20:22 ED Screening Note: 53 y/o female comes in for DIAMOND times this morning. Ankle pain pain times 1.5 weeks. Knee pain bilateral times 3 days. Taken nothing for pain. This initial assessment/diagnostic orders/clinical plan/treatment(s) is/are subject to change based on patients health status, clinical progression and re- assessment by fellow clinical providers in the ED. Further treatment and workup at subsequent clinical providers discretion. Patient/guardian urged not to elope from the ED as their condition may be serious if not clinically assessed and managed. Initial orders include:
[2019-02-24] MEDS ORDERED: ACETAMINOPHEN 325 MG TAB PO ONE (20:25)
--- NOTE | 2019-02-24 22:12 | Emergency Department Report ---
ED General Adult HPI - General Chief complaint: Extremity Injury, Lower Stated complaint: SEVERE HEADACHE,KNEES SWOLLEN Time Seen by Provider: 02/24/19 20:21 Source: patient Mode of arrival: Ambulatory Limitations: No Limitations - History of Present Illness Initial comments: Patient is a 53-year-old -[place] female who presents to the ED with c omplaint of acute onset persistent frontal sinus pressure, frontal headache, nasal and sinus congestion, dry cough for the last 2 days. Patient also complains of severe bilateral knee joint pains for the last 1 week. Patient denies fall, traumatic injury or heavy lifting, nausea, vomiting, fever, chills, chest pain, shortness of breath, sore throat, dizziness, change in vision or syncope, abdominal pain or diarrhea. MD Complaint: sinus headache; nasal congestion, bilateral knee pain -: Sudden, week(s) (1) Location: head, lower extremity (bilateral knee joints) Radiation: non-radiation Severity scale (0 -10): 10 Quality: aching, sharp Consistency: constant Improves with: none Worsens with: none Associated Symptoms: denies other symptoms, cough, headaches, loss of appetite. denies: confusion, chest pain, diaphoresis, fever/chills, malaise, nausea/vomiting, rash, seizure, shortness of breath, syncope, weakness Treatments Prior to Arrival: none - Related Data Previous Rx's Medication Instructions Recorded Last Taken Type HYDROcodone/APAP 5-325 [Stites 1 each PO Q6HR PRN #10 tablet 01/04/15 Unknown Rx 5-325 mg TAB] traMADol [Ultram 50 MG tab] 50 mg PO Q6HR PRN #20 tablet 01/04/15 Unknown Rx Acetaminophen/Codeine [Tylenol #3] 1 tab PO Q6H PRN #14 tab 12/20/15 Unknown Rx Cyclobenzaprine [Flexeril] 10 mg PO TID PRN #20 tablet 12/20/15 Unknown Rx Acetaminophen/Codeine [Tylenol 1 tab PO Q6H PRN #16 tab 12/07/16 Unknown Rx /Codeine # 3 tab] Naproxen [Naprosyn TAB] 500 mg PO BID #20 tablet 12/07/16 Unknown Rx Atenolol 50 mg PO QDAY 14 Days #14 tablet 11/09/17 Unknown Rx Cyclobenzaprine [Flexeril] 10 mg PO BID PRN #20 tablet 01/29/18 Unknown Rx Fluticasone [Flonase] 1 spray NS QDAY #1 bottle 01/29/18 Unknown Rx Naproxen [Naprosyn] 500 mg PO BID PRN #30 tablet 01/29/18 Unknown Rx Ibuprofen [Motrin] 600 mg PO Q8H PRN #14 tablet 05/15/18 Unknown Rx Fluticasone [Flonase] 1 spray NS QDAY #1 bottle 10/27/18 Unknown Rx Ondansetron [Zofran Odt] 4 mg PO Q8HR PRN #20 tab.rapdis 10/27/18 Unknown Rx Amoxicillin [Trimox CAP] 500 mg PO Q8H #30 capsule 02/24/19 Unknown Rx Benzonatate [Tessalon Perles] 100 mg PO Q8HR #30 capsule 02/24/19 Unknown Rx Butalb/Acetaminophen/Caffeine 1 cap PO Q6HR PRN #15 cap 02/24/19 Unknown Rx [Fioricet 50-300-40 mg CAP] Cyclobenzaprine HCl [Flexeril 5 MG 5 mg PO TID PRN #20 tab 02/24/19 Unknown Rx TAB] Ibuprofen [Motrin 800 MG tab] 800 mg PO Q8HR PRN #30 tablet 02/24/19 Unknown Rx predniSONE [Deltasone] 40 mg PO QDAY #10 tab 02/24/19 Unknown Rx Allergies Allergy/AdvReac Type Severity Reaction Status Date / Time No Known Allergies Allergy Verified 10/26/18 19:12 ED Review of Systems ROS: Stated complaint: SEVERE HEADACHE,KNEES SWOLLEN Other details as noted in HPI Constitutional: denies: chills, fever Eyes: denies: eye pain, eye discharge, vision change ENT: congestion. denies: ear pain, throat pain Respiratory: cough. denies: shortness of breath, wheezing Cardiovascular: denies: chest pain, palpitations Endocrine: no symptoms reported Gastrointestinal: denies: abdominal pain, nausea, vomiting, diarrhea Genitourinary: denies: urgency, dysuria, discharge Musculoskeletal: arthralgia (bilateral knee pain). denies: back pain, joint swelling Skin: denies: rash, lesions Neurological: headache. denies: weakness, paresthesias Psychiatric: denies: anxiety, depression Hematological/Lymphatic: denies: easy bleeding, easy bruising ED Past Medical Hx - Past Medical History Previous Medical History?: Yes Hx Hypertension: Yes Hx CVA: No Hx Heart Attack/AMI: No Hx Congestive Heart Failure: No Hx Diabetes: No Hx Deep Vein Thrombosis: No Hx Pulmonary Embolism: No Hx GERD: No Hx Liver Disease: No Hx Renal Disease: No Hx of Cancer: No Hx Sickle Cell Disease: No Hx Arthritis: No Hx Headaches / Migraines: No Hx Seizures: No Hx Kidney Stones: No Hx Psychiatric Treatment: No Hx Asthma: No Hx COPD: No Hx Tuberculosis: No Hx Dementia: No Hx HIV: No Additional medical history: "PALPITATIONS". SCIATICA - Surgical History Past Surgical History?: Yes Hx Coronary Stent: No Hx Open Heart Surgery: No Hx Pacemaker: No Hx Internal Defibrillator: No Hx Cholecystectomy: Yes Hx Appendectomy: No Hx Breast Surgery: No Additional Surgical History: TUBAL LIGATION - Social History Smoking Status: Current Some Day Smoker Substance Use Type: Alcohol, Marijuana - Medications Home Medications: Home Medications Medication Instructions Recorded Confirmed Last Taken Type HYDROcodone/APAP 5-325 [Stites 1 each PO Q6HR PRN #10 tablet 01/04/15 Unknown Rx 5-325 mg TAB] traMADol [Ultram 50 MG tab] 50 mg PO Q6HR PRN #20 tablet 01/04/15 Unknown Rx Acetaminophen/Codeine [Tylenol #3] 1 tab PO Q6H PRN #14 tab 12/20/15 Unknown Rx Cyclobenzaprine [Flexeril] 10 mg PO TID PRN #20 tablet 12/20/15 Unknown Rx Acetaminophen/Codeine [Tylenol 1 tab PO Q6H PRN #16 tab 12/07/16 Unknown Rx /Codeine # 3 tab] Naproxen [Naprosyn TAB] 500 mg PO BID #20 tablet 12/07/16 Unknown Rx Atenolol 50 mg PO QDAY 14 Days #14 tablet 11/09/17 Unknown Rx Cyclobenzaprine [Flexeril] 10 mg PO BID PRN #20 tablet 01/29/18 Unknown Rx Fluticasone [Flonase] 1 spray NS QDAY #1 bottle 01/29/18 Unknown Rx Naproxen [Naprosyn] 500 mg PO BID PRN #30 tablet 01/29/18 Unknown Rx Ibuprofen [Motrin] 600 mg PO Q8H PRN #14 tablet 05/15/18 Unknown Rx Fluticasone [Flonase] 1 spray NS QDAY #1 bottle 10/27/18 Unknown Rx Ondansetron [Zofran Odt] 4 mg PO Q8HR PRN #20 tab.rapdis 10/27/18 Unknown Rx Amoxicillin [Trimox CAP] 500 mg PO Q8H #30 capsule 02/24/19 Unknown Rx Benzonatate [Tessalon Perles] 100 mg PO Q8HR #30 capsule 02/24/19 Unknown Rx Butalb/Acetaminophen/Caffeine 1 cap PO Q6HR PRN #15 cap 02/24/19 Unknown Rx [Fioricet 50-300-40 mg CAP] Cyclobenzaprine HCl [Flexeril 5 MG 5 mg PO TID PRN #20 tab 02/24/19 Unknown Rx TAB] Ibuprofen [Motrin 800 MG tab] 800 mg PO Q8HR PRN #30 tablet 02/24/19 Unknown Rx predniSONE [Deltasone] 40 mg PO QDAY #10 tab 02/24/19 Unknown Rx ED Physical Exam - General Limitations: No Limitations General appearance: alert, in no apparent distress - Head Head exam: Present: atraumatic, normocephalic, normal inspection, other (probable tenderness of the frontal and maxillary) - Eye Eye exam: Present: normal appearance, PERRL, EOMI - ENT ENT exam: Present: normal orophraynx, mucous membranes moist, TM's normal bilaterally, normal external ear exam, other (grossly congested nasal passages; palpable severe frontal sinus tenderness) - Neck Neck exam: Present: normal inspection, full ROM - Respiratory Respiratory exam: Present: normal lung sounds bilaterally. Absent: respiratory distress, wheezes, rales, chest wall tenderness, accessory muscle use, decreased breath sounds - Cardiovascular Cardiovascular Exam: Present: regular rate, normal rhythm, normal heart sounds. Absent: systolic murmur, diastolic murmur, rubs, gallop - GI/Abdominal GI/Abdominal exam: Present: soft, normal bowel sounds. Absent: tenderness, hyperactive bowel sounds - Extremities Exam Extremities exam: Present: normal inspection, tenderness (Palpable bilateral knee joints), normal capillary refill - Back Exam Back exam: Present: normal inspection, full ROM. Absent: tenderness - Neurological Exam Neurological exam: Present: alert, oriented X3, CN II-XII intact, normal gait, reflexes normal - Psychiatric Psychiatric exam: Present: normal affect, normal mood - Skin Skin exam: Present: warm, dry, intact, normal color. Absent: rash ED Course Vital Signs 02/24/19 02/24/19 02/24/19 19:46 20:14 21:30 Temperature 98.3 F 98.3 F Pulse Rate 97 H 97 H Respiratory 18 18 19 Rate Blood Pressure 153/101 153/101 O2 Sat by Pulse 98 100 Oximetry - Reevaluation(s) Reevaluation #1: 02/24/19 22:18 This is a 53-year-old Afro-[place] female who presented to the ED with frontal sinus headache, sinus pressure, nasal and sinus congestion and bilateral knee pain. In the ED, patient is alert and oriented 3 and is not in distress. Patient playing games on half on the physical exam without making any facial contacts with the provider. Based on the patient's history and physical exam findings, patient likely has acute frontal sinusitis, acute upper respiratory infection and bilateral osteoarthritis of the knees. Patient was discharged home on medications and advised to follow-up with her primary care physician in 7-10 days for reevaluation. Patient was also advised to return to the ED immediately if symptoms get worse. ED Medical Decision Making - Medical Decision Making This is a 53-year-old Afro-[place] female who presented to the ED with frontal sinus headache, sinus pressure, nasal and sinus congestion and bilateral knee pain. In the ED, patient is alert and oriented 3 and is not in distress. Patient playing games on half on the physical exam without making any facial contacts with the provider. Based on the patient's history and physical exam findings, patient likely has acute frontal sinusitis, acute upper respiratory infection and bilateral osteoarthritis of the knees. Patient was discharged home on medications and advised to follow-up with her primary care physician in 7-10 days for reevaluation. Patient was also advised to return to the ED immediately if symptoms get worse. - Differential Diagnosis sinusitis; bronchitis; URI; Knee sprain; DJD of knees Critical care attestation.: If time is entered above; I have spent that time in minutes in the direct care of this critically ill patient, excluding procedure time. ED Disposition Clinical Impression: Acute upper respiratory infection, Chronic osteoarthritis Acute frontal sinusitis Qualifiers: Recurrence: non-recurrent Qualified Code(s): J01.10 - Acute frontal sinusitis, unspecified Acute bronchitis Qualifiers: Bronchitis organism: other organism Qualified Code(s): J20.8 - Acute bronchitis due to other specified organisms Muscle strain of lower leg Qualifiers: Encounter type: initial encounter Laterality: unspecified laterality Qualified Code(s): S86.919A - Strain of unspecified muscle(s) and tendon(s) at lower leg level, unspecified leg, initial encounter Disposition: TO HOME OR SELFCARE Is pt being admited?: No Does the pt Need Aspirin: No Condition: Stable Instructions: Muscle Strain (ED), Acute Bronchitis (ED), Acute Bacterial Rhinosinusitis (ED), Arthralgia (ED), Knee Pain (ED) Additional Instructions: Take medication with food, drink plenty of fluids and follow-up with your primary care physician in 7-10 days for reevaluation. Return to the ED immediately if symptoms get worse. Prescriptions: predniSONE [Deltasone] 40 mg PO QDAY #10 tab Butalb/Acetaminophen/Caffeine [Fioricet 50-300-40 mg CAP] 1 cap PO Q6HR PRN #15 cap PRN Reason: Headache Cyclobenzaprine HCl [Flexeril 5 MG TAB] 5 mg PO TID PRN #20 tab PRN Reason: muscle spasms Ibuprofen [Motrin 800 MG tab] 800 mg PO Q8HR PRN #30 tablet PRN Reason: Pain Benzonatate [Tessalon Perles] 100 mg PO Q8HR #30 capsule Amoxicillin [Trimox CAP] 500 mg PO Q8H #30 capsule Referrals: AD REDDY MD [Primary Care Provider] - 3-5 Days Forms: Work/School Release Form(ED) Time of Disposition: 22:12 Print Language: LITHUANIAN
== END 2019-02-24 23:06 | disposition home or self-care (01) ==
LOC: ED 19:37
DX: S86.911A Strain of unspecified muscle(s) and tendon(s) at lower leg level, right leg, initial encounter (principal); J20.8 Acute bronchitis due to other specified organisms; J01.10 Acute frontal sinusitis, unspecified; J06.9 Acute upper respiratory infection, unspecified; M19.90 Unspecified osteoarthritis, unspecified site; Z98.890 Other specified postprocedural states; Z79.899 Other long term (current) drug therapy; X58.XXXA Exposure to other specified factors, initial encounter; Y93.89 Activity, other specified; Y92.89 Other specified places as the place of occurrence of the external cause; Y99.8 Other external cause status